=== PATIENT | female | born 1945 | race Hispanic/Latino ===

== ENCOUNTER 2016-04-23 08:49 | Outpatient (CLI) | payer MEDICARE ==
[2016-04-23 13:49] LABS: #Basophils 0.1 thou/uL (0.0-0.2); #Eosinphils 0.1 thou/uL (0.0-0.7); #Lymphocytes 2.3 thou/uL (1.20-3.40); #Monocytes 0.5 thou/uL (0.11-0.59); #Neutrophils 3.1 thou/uL (1.40-6.50); %Eosinophils 1.1 % (0.0-10.0); %Lymphocytes 38.7 % (21.0-51.0); %Monocytes 7.8 % (0.0-10.0); Hematocrit 34.8 % (36.0-47.0); Mean Platelet Volume 7.4 fL (7.4-10.4); Red Blood Cell (RBC) Count 3.48 mill/uL (4.20-5.40)
== END 2016-04-23 08:50 ==
LOC: NAVSJIPCSP 08:49
PROVIDERS: ATTEND Internal Medicine
DX: E78.5 Hyperlipidemia, unspecified (principal); D61.9 Aplastic anemia, unspecified
CPT/HCPCS: 36415; 80061; 85025

== ENCOUNTER 2016-07-23 08:39 | Outpatient (CLI) | payer MEDICARE ==
[2016-07-23 13:01] LABS: Anion Gap 20 mmol/L (10-20); BUN (Urea Nitrogen) 34 mg/dL (9.8-20.1); Calc. Creatinine Clearance 0 mL/min (70-130); Calcium 9.1 mg/dL (7.8-10.44); Carbon Dioxide 28 mmol/L (23-31); Cardiac Risk 4.3 (Less than 4.5); Chloride 98 mmol/L (98-107); Cholesterol 176 mg/dL (< 200 Desired); Estimated GFR-MDRD 6; Glucose 86 mg/dL (83-110); HDL Cholesterol 41 mg/dL (>60 Neg Risk); LDL Cholesterol, Calculated 112 mg/dL; Sodium 142 mmol/L (136-145); Triglycerides 115 mg/dL (Less than 150)
[2016-07-23 13:36] LABS: #Basophils 0.1 thou/uL (0.0-0.2); #Eosinphils 0.1 thou/uL (0.0-0.7); #Monocytes 0.5 thou/uL (0.11-0.59); #Neutrophils 2.7 thou/uL (1.40-6.50); %Basophils 1.5 % (0.0-1.0); %Eosinophils 1.7 % (0.0-10.0); %Monocytes 7.8 % (0.0-10.0); Hemoglobin 11.2 g/dL (12.0-16.0); MDiff Complete? YES; Mean Corpuscular HGB CONC 31.3 g/dL (32.0-36.0); Mean Corpuscular Hemoglobin 31.5 pg (27.0-31.0); Mean Platelet Volume 7.9 fL (7.4-10.4); Platelet Count 113 thou/uL (130-400); RBC Distribution Width 14.9 % (11.5-14.5); Red Blood Cell (RBC) Count 3.56 mill/uL (4.20-5.40); White Blood Cell (WBC) Count 6.4 thou/uL (4.8-10.8)
[2016-07-23 13:37] LABS: Anisocytosis SLIGHT = 6-15 cells (100X) (0-5/hpf); Macrocytosis SLIGHT = 6-15 cells (100X) (0-5/hpf); PLT Morphology Comment Appears Adequate
== END 2016-07-23 08:40 | disposition home or self-care (01) ==
LOC: NAVSJIPCSP 08:39
PROVIDERS: ATTEND Internal Medicine
DX: E78.5 Hyperlipidemia, unspecified (principal); I11.9 Hypertensive heart disease without heart failure; D61.9 Aplastic anemia, unspecified; Z79.899 Other long term (current) drug therapy
CPT/HCPCS: 36415; 80048; 80061; 85025

== ENCOUNTER 2016-07-28 15:07 | Outpatient (CLI) | payer MEDICARE | END 2016-07-28 15:08 | disposition home or self-care (01) | LOC: NAV LAB 15:07 | PROVIDERS: ATTEND Internal Medicine | DX: R35.0 Frequency of micturition (principal) | CPT/HCPCS: 87077; 87086; 87186 ==

== ENCOUNTER 2016-10-27 09:02 | Outpatient (CLI) | payer MEDICARE ==
[2016-10-27 18:28] LABS: Cardiac Risk 3.8 (Less than 4.5)
== END 2016-10-27 09:03 | disposition home or self-care (01) ==
LOC: NAVSJIPCSP 09:02
PROVIDERS: ATTEND Internal Medicine
DX: E78.5 Hyperlipidemia, unspecified (principal); Z79.899 Other long term (current) drug therapy
CPT/HCPCS: 36415; 80061

== ENCOUNTER 2016-12-01 16:01 | Outpatient (CLI) | payer MEDICARE ==
--- NOTE | 2016-12-01 18:07 | RAD ---
EXAM: CHEST TWO VIEWS 12/01/16 COMPARISON: 03/25/15 HISTORY: Cough. FINDINGS: There is atherosclerosis of the aorta. Normal cardiac silhouette. The pulmonary vessels and hilum ar e normal. No mass. No consolidation. No pneumothorax or osseous abnormalities. Calcified right hilar lymph nodes are noted. IMPRESSION: 1. Atherosclerosis. 2. No acute process. POS: [facility]
--- NOTE | 2016-12-01 18:09 | RAD ---
LUMBAR SPINE: 12/01/16 Three views. HISTORY: Low back pain. Moderate degenerative changes are noted with osteophytes in the lumbar vertebrae. There is loss of d isc space at L2-3 and L3-4. Slight anterolisthesis at L4-5. Prominent facet hypertrophy at all level s. Dense aortic calcification. IMPRESSION: Moderate degenerative changes of the lumbar spine as described. POS: [facility]
== END 2016-12-01 16:02 | disposition home or self-care (01) ==
LOC: NAV RAD 16:01
PROVIDERS: ATTEND Internal Medicine
DX: M54.5 Low back pain (principal); R05 Cough; M47.816 Spondylosis without myelopathy or radiculopathy, lumbar region; I70.90 Unspecified atherosclerosis
CPT/HCPCS: 71020; 72100

== ENCOUNTER 2019-03-07 09:40 | Outpatient (CLI) | payer MEDICARE ==
--- NOTE | 2019-03-07 11:16 | RAD ---
CHEST TWO VIEWS: INDICATIONS: Acute respiratory infection and cough. COMPARISON: 12/01/2016 FINDINGS: There is stable mild cardiomegaly. Aortic valvular prosthesis is unchanged. Vascular calcifications o f the aorta are stable appearing. There is perihilar interstitial prominence. No donya consolidation is evident. No pleural effusion is noted. No acute osseous abnormality is evident. IMPRESSION: Perihilar interstitial prominence is suspicious for an underlying interstitial infectious process, moore ch as viral pneumonia. No donya consolidation is evident to suggest bacterial pneumonia. POS: OFF
== END 2019-03-07 09:41 | disposition home or self-care (01) ==
LOC: NAV RAD 09:40
PROVIDERS: ATTEND Internal Medicine
DX: J06.9 Acute upper respiratory infection, unspecified (principal); J98.4 Other disorders of lung
CPT/HCPCS: 71046

== ENCOUNTER 2019-10-24 14:14 | Outpatient (CLI) | payer MEDICARE ==
--- NOTE | 2019-10-24 14:46 | RAD ---
EXAM: LEFT WRIST THREE VIEWS: 10/24/19 HISTORY: Pain, injury from a fall. FINDINGS: osteoarthrosis and degenerative changes of the right wrist with narrowed radial scaphoid and triscaph e joint as well as the trapezium first metacarpal joint. Prominent vascular calcification. No evidenc e for acute fracture or dislocation. Minimal soft tissue swelling overlying the lateral aspect of the wrist. IMPRESSION: Osteoarthrosis and degenerative change. No acute fracture or dislocation. Marked vascular calcificati on. Minimal soft tissue swelling. POS: OFF
== END 2019-10-24 14:15 | disposition home or self-care (01) ==
LOC: NAV RAD 14:14
PROVIDERS: ATTEND Family Medicine
DX: M65.4 Radial styloid tenosynovitis [de Quervain] (principal); W19.XXXA Unspecified fall, initial encounter; I70.90 Unspecified atherosclerosis; M79.89 Other specified soft tissue disorders; M19.032 Primary osteoarthritis, left wrist